=== PATIENT | male | born 1960 | race Caucasian/White ===

== ENCOUNTER 2017-02-15 11:20 | Emergency (ER) | payer BC ==
[2017-02-15] MEDS ORDERED: Diphtheria,Pertussis(Acell),Tetanus Vaccine 0.5 ML SDV inactive IM ONE (12:01)
--- NOTE | 2017-02-15 12:14 | EDM.PDOC ---
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 Has been bleeding. Able to move all his finger and thumb. Presently not in pain. He did wash the wound and apply pressure on it and here in the emergency room. Pt is not sure of his last tetanus shot. No other complaints. Onset: Today Onset Date: 02/15/17 Onset Time: 10:30 Severity: Mild Improves with: Reports: None Worsens with: Reports: None Associated Symptoms: Denies: Confusion, Chest Pain, Fever/Chills, Rash, Shortness of Breath, Syncope, Weakness - Related Data Allergies Allergy/AdvReac Type Severity Reaction Status Date / Time No Known Allergies Allergy Verified 02/15/17 11:35 Home Meds: Home Meds Fenofibrate [Lofibra] 145 mg PO DAILY 01/21/16 [History] Hydrochlorothiazide [Hydrochlorothiazide] 12.5 mg PO DAILY 01/21/16 [History] Past Medical History Cardiovascular History: Reports: High Cholesterol, Hypertension Musculoskeletal History: Reports: Back Pain, Chronic - Infectious Disease History Infectious Disease History: Reports: Measles Social & Family History - Family History Family Medical History: Noncontributory - Tobacco Use Smoking Status *Q: Former Smoker ED ROS GENERAL - Review of Systems Review Of Systems: See Below Constitutional: Denies: Fever, Chills HEENT: Denies: Sinus Problem, Throat Pain, Throat Swelling Respiratory: Denies: Shortness of Breath, Cough, Sputum Cardiovascular: Denies: Lightheadedness, Orthopnea GI/Abdominal: Denies: Nausea, Vomiting Musculoskeletal: Denies: Joint Pain, Joint Swelling Skin: Denies: Bruising, Pruritis, Rash ED EXAM, GENERAL - Physical Exam Exam: See Below Exam Limited By: No Limitations General Appearance: Alert, WD/WN, No Apparent Distress Eye Exam: Bilateral Eye: EOMI, PERRL Ears: Normal External Exam, Normal Canal, Hearing Grossly Normal, Normal TMs Nose: Normal Inspection, Normal Mucosa, No Blood Throat/Mouth: Normal Inspection, Normal Lips, Normal Teeth, Normal Gums, Normal Oropharynx, Normal Voice, No Airway Compromise Head: Atraumatic, Normocephalic Neck: Normal Inspection, Supple, Non-Tender, Full Range of Motion Respiratory/Chest: No Respiratory Distress, Lungs Clear, Normal Breath Sounds, No Accessory Muscle Use, Chest Non-Tender Cardiovascular: Normal Peripheral Pulses, Regular Rate, Rhythm, No Edema, No Gallop, No JVD, No Murmur, No Rub Extremities: No Pedal Edema, Normal Capillary Refill, Other (Right hand: ther is a 3 cm long curvilinear laceration over the dorsum of the hand just lateral to the 1st metacarpla. The laceration has irregular margin and is skin deep. No exposure of under lying soft tissue. The wound is gaping with minimal bleeding. Good ROM of the small joints of the hand. 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.) Neurological: Alert, Oriented, CN II-XII Intact, Normal Cognition, Normal Gait, Normal Reflexes, No Motor/Sensory Deficits ED GENERAL MEDICAL PROCEDURES - Laceration/Wound Repair Right Hand Appearance: Superficial Distal NVT: Neuro & Vascular Intact Local Anesthesia - Lidocaine (Xylocaine): 1% With EPI Local Anesthetic Volume: 2cc Skin Prep: Providone-Iodine (Betadine) Suture Size: 4-0 # of Sutures: 6 Suture Type: Interrupted, Other (ethilon) Sterile Dressing Applied: Provider Tetanus Status Addressed: Yes Complications: No Course - Vital Signs Text/Narrative:: Pt reassured that he has sustained 3 cm irregular laceration of the right hand. The wound was closed under aseptic precautions. Pressure dressing done. Wound is clean wound closed within 1 hr of injury, he does not need oral antibiotics. Advised not to wet the wound for 48 hrs. He can shower and have soap and water flow. Dab the wound dry and keep the wound covered. Infection precautions given. Suture removal in 7 days. Also as pt is not sure of the tetanus date, he did receive Tdap today. Followup in clinic in 1 wk for suture removal. - Orders/Labs/Meds Orders: Active Orders 24 hr Category Date Time Status Vaccines to be Administered [RC] PER UNIT ROUTINE Care 02/15/17 12:01 Active Meds: Medications Discontinued Medications Generic Name Dose Route Start Last Admin Trade Name Freq PRN Reason Stop Dose Admin Diphtheria/Tetanus/Acell Pertussis 0.5 ml 02/15/17 12:01 Boostrix IM 02/15/17 12:02 .ONCE ONE Departure - Departure Time of Disposition: 12:00 Disposition: Home, Self-Care 01 Condition: Good Clinical Impression: Hand laceration - Discharge Information Instructions: Laceration Care, Adult, VIS, Tetanus, Diphtheria, and Pertussis ( Tdap) - CDC Referrals: PCP,Unknown [Primary Care Provider] - Forms: ED Department Discharge Additional Instructions: Do not get wound wet for 2 days, if you need to shower cover the wound with a plastic bag or something so the area does not get wet. Apply antibiotic ointment to the wound as needed. Keep wound covered when outside so it does not get dirty. Have sutures removed on Friday02/21/17. If you have any questions or concerns please call us at [phone]. - Problem List & Annotations (1) Hand laceration SNOMED Code(s): 041590733 Code(s): S61.419A - LACERATION WITHOUT FOREIGN BODY OF UNSP HAND, INIT ENCNTR Status: Acute Current Visit: Yes - Problem List Review Problem List Initiated/Reviewed/Updated: Yes - My Orders Last 24 Hours: My Active Orders 02/15/17 12:01 Vaccines to be Administered [RC] PER UNIT ROUTINE - Assessment/Plan Last 24 Hours: My Active Orders 02/15/17 12:01 Vaccines to be Administered [RC] PER UNIT ROUTINE Assessment:: Right hand 3 cm laceration Plan: Pt reassured that he has sustained 3 cm irregular laceration of the right hand. The wound was closed under aseptic precautions. Pressure dressing done. Wound is clean wound closed within 1 hr of injury, he does not need oral antibiotics. Advised not to wet the wound for 48 hrs. He can shower and have soap and water flow. Dab the wound dry and keep the wound covered. Infection precautions given. Suture removal in 7 days. Also as pt is not sure of the tetanus date, he did receive Tdap today. Followup in clinic in 1 wk for suture removal.
[2017-02-15 12:41] VITALS: BP 142/86
== END 2017-02-15 12:05 | disposition home or self-care (01) ==
LOC: LB.ED 11:20
DX: S61.411A Laceration without foreign body of right hand, initial encounter (principal); E78.00 Pure hypercholesterolemia, unspecified; I10 Essential (primary) hypertension; Z87.891 Personal history of nicotine dependence; W45.8XXA Other foreign body or object entering through skin, initial encounter; Y93.89 Activity, other specified; Z79.899 Other long term (current) drug therapy
CPT/HCPCS: 12002; 90471; 90715; 99283-25

== ENCOUNTER 2017-02-20 18:12 | Emergency (ER) | payer BC ==
[2017-02-20] MEDS ORDERED: Amoxicillin/Clavulanate K 875-125 MG Tab ONE (18:40)
[2017-02-20 19:09] VITALS: BP 148/98
--- NOTE | 2017-02-20 23:51 | ER ---
HISTORY OF PRESENT ILLNESS: A 56-year-old male here for recheck involving a laceration to the right hand. He injured himself on February 15 while working with a sickle mower. He was into the emergency room here and had the wound treated. It was sutured. He states that a couple of stitches have pulled out. There is some puffiness still present around the laceration. The patient is concerned about infection. He has also noticed some bruising on the inside of his right arm back to the elbow. He has not been running a fever and has been continuing with his activities as normal. CURRENT MEDICATIONS: Current medications include blood pressure medication and a baby aspirin. OBJECTIVE: GENERAL APPEARANCE: The patient is awake and alert, in no obvious distress. VITAL SIGNS: Reviewed as listed. EXTREMITIES: Examining the right hand reveals a laceration over the dorsal aspect of the hand proximal to the index finger. Two of the sutures have pulled out, and the wound in this area is just slightly . It is starting to heal by secondary intention. The remaining stitches are in place. There is still some swelling present at the laceration site and bruising on the inner aspect of the arm all the way back to the elbow. The skin in this area is macular and nontender. I do not feel a hematoma. There is no bleeding or drainage from the laceration itself. DIAGNOSIS: Laceration recheck with continued bruising and swelling. TREATMENT PLAN: I advised patient that I will put him on an antibiotic. He is to continue using a circumferential dressing to the laceration for the next three to four days, and the sutures should probably come out early next week. He has been keeping his arm elevated quite often he tells me, and I feel this is where the bruising has radiated back towards the elbow area. He does not have a hematoma and no obvious infection. The patient agrees with the treatment plan and has no further questions. Nursing staff cleansed the wound, and we applied a dressing for him here in the emergency room. SONALI/TONA /[id number]
== END 2017-02-20 19:05 | disposition home or self-care (01) ==
LOC: LB.ED 18:12
DX: S61.411D Laceration without foreign body of right hand, subsequent encounter (principal); S50.01XD Contusion of right elbow, subsequent encounter; W29.8XXD Contact with other powered hand tools and household machinery, subsequent encounter
CPT/HCPCS: 99283; A9270

== ENCOUNTER 2020-02-11 11:55 | Emergency (ER) | payer BC ==
--- NOTE | 2020-02-11 15:56 | EDM.PDOC ---
ED HPI GENERAL MEDICAL PROBLEM - General Chief Complaint: General Stated Complaint: ILL Time Seen by Provider: 02/11/20 12:00 Source of Information: Reports: Other History Limitations: Reports: Other - History of Present Illness INITIAL COMMENTS - FREE TEXT/NARRATIVE: Patient came to get tested for COVID. Asymptomatic. He didn't stay for a provider examination and went home. NO exam or ROS was performed. Patient given his results over the phone. with diarrhea and nausea x 1 day. - Related Data Allergies Allergy/AdvReac Type Severity Reaction Status Date / Time No Known Allergies Allergy Verified 02/15/17 11:35 Home Meds: Home Meds Hydrochlorothiazide 12.5 mg PO DAILY 01/21/16 [History] Aspirin [Adult Low Dose Aspirin EC] 81 mg PO DAILY 02/15/17 [History] Past Medical History Cardiovascular History: Reports: High Cholesterol, Hypertension Musculoskeletal History: Reports: Back Pain, Chronic - Infectious Disease History Infectious Disease History: Reports: Measles Social & Family History - Family History Family Medical History: Noncontributory ED ROS GENERAL - Review of Systems Review Of Systems: Comprehensive ROS is negative, except as noted in HPI. ED EXAM, GENERAL - Physical Exam Exam: See Below Free Text/Narrative:: no exam as patient left prior to being seen. Course - Orders/Labs/Meds Labs: Laboratory Tests 02/11/20 Range/Units 13:45 SARS-CoV-2 RNA (RT-PCR) Negative Departure - Departure Time of Disposition: 16:00 Disposition: Left Without Being Seen 07 Clinical Impression: COVID-19 ruled out - Discharge Information *PRESCRIPTION DRUG MONITORING PROGRAM REVIEWED*: Not Applicable *COPY OF PRESCRIPTION DRUG MONITORING REPORT IN PATIENT TRUDI: Not Applicable Referrals: PCP,None [Primary Care Provider] - Forms: ED Department Discharge
== END 2020-02-11 12:45 | disposition left against medical advice (07) ==
LOC: LB.ED 11:55
DX: Z53.21 Procedure and treatment not carried out due to patient leaving prior to being seen by health care provider (principal)
CPT/HCPCS: U0002